=== PATIENT | female | born 1985 | race African-American/Black ===

== ENCOUNTER 2017-07-25 23:29 | Emergency (ER) | payer MEDICAID, OTHER ==
[~2017-07-25] VITALS: Ht 170.2 cm; Wt 104.0 kg
[~2017-07-25 23:29] MED LIST: METH40TA12
[2017-07-26] MEDS ORDERED: FAMOTIDINE 20MG/2ML VIAL IV ONE (03:00)
[2017-07-26] MEDS ORDERED: ONDANSETRON HCL 4MG/2ML VIAL IV STA (03:00)
[2017-07-26] MEDS ORDERED: KETOROLAC 30MG/ML VIAL IV STA (03:00)
[2017-07-26 04:11] LABS: CLARITY URINE CLEAR (CLEAR); COLOR URINE YELLOW (YELLOW); GLUCOSE URINE NEGATIVE (NEGATIVE); KETONES URINE NEGATIVE (NEGATIVE); LEUKOCYTE ESTERASE URINE NEGATIVE (NEGATIVE); NITRITE URINE NEGATIVE (NEGATIVE); OCCULT BLOOD URINE NEGATIVE (NEGATIVE); PROTEIN URINE NEGATIVE (NEGATIVE); SPECIFIC GRAVITY URINE 1.005 (1.005-1.030); UROBILINOGEN URINE 0.2 E.U./dL (0.2-1.0)
[2017-07-26 05:32] LABS: BASOPHILS % 0.3 % (0.0-2.0); EOSINOPHILS % 1.7 % (0.0-5.0); HEMOGLOBIN. 11.9 g/dL (12.0-16.0); LYMPHOCYTES % 32.3 % (20.0-50.0); MEAN CORPUSCULAR HEMOGLOBIN 25.5 pg (28.0-32.0); MEAN CORPUSCULAR VOLUME 79.4 fL (81.0-99.0); MEAN PLATELET VOLUME 7.1 fl (7.4-10.4); MONOCYTES % 5.7 % (2.0-8.0); PLATELET 325 x1000/uL (130-400); RED BLOOD CELL COUNT 4.66 mill/uL (4.2-5.4); RED CELL DISTRIBUTION WIDTH 16.2 % (11.6-14.6)
[2017-07-26 05:56] LABS: CARBON DIOXIDE 27 mEq/L (21-32); CHLORIDE 105 mEq/L (98-107)
[2017-07-26] MEDS ORDERED: TRAMADOL 50MG TABLET PO ONE (06:45)
[2017-07-26 06:51] VITALS: BP 122/75
== END 2017-07-26 08:00 | disposition home or self-care (01) ==
LOC: ER 23:29
DX: K80.20 Calculus of gallbladder without cholecystitis without obstruction (principal)
CPT/HCPCS: 36415; 76705; 80053; 81003; 81025; 83690; 85025; 96374; 96375; 99285; J1885; J2405; J3490; Z7610